=== PATIENT | female | born 1950 | race Caucasian/White ===

== ENCOUNTER 2017-02-09 11:26 | Outpatient (CLI) ==
[2015-10-11 14:58] VITALS: BMI 29.8
--- NOTE | 2017-02-09 12:02 | DI ---
EXAM: Four x-rays of the sinuses/paranasal sinuses. Comparison: CT of the brain performed on 06/19/2015. Reason for exam: Sinus drainage. FINDINGS: There is unremarkable appearing aeration of the frontal and bilateral maxillary sinuses. There are no discrete radiopaque densities or air-fluid levels seen within the sinuses. Impression: No acute findings are seen within the sinuses and paranasal sinuses. If clinical suspic ion is high, a CT scan may be performed.
== END 2017-02-09 11:27 | disposition home or self-care (01) ==
LOC: RAD 11:26
PROVIDERS: ATTEND Otolaryngology
DX: J31.0 Chronic rhinitis (principal)

== ENCOUNTER 2017-07-25 15:43 | Emergency (ER) ==
[2017-07-25 16:00] VITALS: TEMP 99.9; BMI 32.9
[2017-07-25] MEDS ORDERED: URO-JET MUCOUSMEMB STA (16:10)
[2017-07-25 16:43] LABS: BASOPHILS % (AUTO) 0.4 % (0.0-3.0); EOSINOPHILS # (AUTO) 0.1 K/ul (0.0-0.7); EOSINOPHILS % (AUTO) 1.1 % (0.0-7.0); HEMATOCRIT 40.3 % (37.0-47.0); HEMOGLOBIN 13.6 g/dl (12.0-16.0); IMMATURE GRANULOCYTE % (AUTO) 0.3 % (0.0-5.0); LYMPHOCYTES # (AUTO) 3.3 K/uL (0.60-3.4); LYMPHOCYTES % (AUTO) 31.4 (10.0-50.0); MEAN CORPUSCULAR HEMOGLOBIN 29.4 pg (27.0-31.0); MEAN CORPUSCULAR HGB CONC 33.7 (31.8-35.4); MEAN CORPUSCULAR VOLUME 87.2 fl (81.0-99.0); MONOCYTES # (AUTO) 0.8 K/uL (0.4-2.0); MONOCYTES % (AUTO) 7.5 (0-10); NEUTROPHILS # (AUTO) 6.2 K/ul (2.0-6.9); NEUTROPHILS % (AUTO) 59.3; PLATELET COUNT 230 10^3/uL (140-440); RED BLOOD COUNT 4.62 10^6/ul (4.20-5.40); WHITE BLOOD COUNT 10.41 K/ul (4.6-10.2)
[2017-07-25 16:43] LABS: BILIRUBIN,URINE Negative (NEGATIVE); KETONES,URINE Negative (NEGATIVE); LEUKOCYTE ESTERASE ,URINE Negative (NEGATIVE); NITRITE,URINE Negative (NEGATIVE); PROTEIN,URINE Negative (NEGATIVE); URINE, BLOOD Trace-intact (NEGATIVE)
--- NOTE | 2017-07-25 16:44 | CT ---
EXAM: CT of the abdomen pelvis without contrast History: Suprapubic abdominal pain. Technique: Multiplanar CT images through the abdomen pelvis were obtained without the administration of IV contrast Findings: Bilateral breast implants. Subsegmental atelectasis seen within the lower lungs. Atheros clerotic vascular calcifications. No discrete gallstones identified by CT. No focal liver or spleni c lesions. No peripancreatic inflammation. Adrenal glands are unremarkable. No renal stones and no hydronephrosis. 1.5 cm left renal cyst. No bowel obstruction. The appendix is normal. Scattered colonic stool. No bladder wall thickening. Adnexal structures appear appropriate for patient's age. No perirectal inflammation. No free air and no ascites. No acute osseous abnormalities. Severe de generative disc disease at L5-S1. Metallic wire device is seen traversing the left sacrum. Impression: 1. No acute intra-abdominal or pelvic process. 2. Small simple left renal cyst. 3. Severe degenerative disc disease at L5-S1
[2017-07-25 16:45] LABS: ADD URINE MICROSCOPIC YES
[2017-07-25 17:02] LABS: ALBUMIN 3.8 g/dL (3.4-5.0); ALBUMIN/GLOBULIN RATIO 0.97; ANION GAP 15.6; BILIRUBIN,TOTAL 0.8 mg/dL (0.00-1.20); BUN/CREATININE RATIO 16.66; CALCIUM 9.7 mg/dL (8.2-10.2); CREATININE 0.72 mg/dL (0.60-1.30); POTASSIUM 3.6 mmol/L (3.5-5.10); TOTAL PROTEIN 7.7 g/dL (5.8-8.1)
[2017-07-25] MEDS ORDERED: ATIVAN IM STA (17:44)
[2017-07-25 17:45] VITALS: BP 136/78
--- NOTE | 2017-07-25 17:50 | ED.PDOC ---
General ED Provider: Dr. ALEKSANDRA MATA Chief Complaint: Urinary Problem Stated Complaint: anxiety Time Seen by Physician: 16:00 (seen with entire nursing staff toya handy RN) Mode of Arrival: Walk-In Information Source: Family Exam Limitations: No limitations Primary Care Provider: ERAN BARTH Nursing and Triage Documentation Reviewed and Agree: Yes (PT HAS DEMENTIA AND IS VERY EMOTIONAL IN NO ACUTE PAIN) Psychological Complaint Exam - Psychiatric Complaint/Exam Patient Complains Of: Present: Depression, Other (ANXIET IN THE SETTING OF DEMENTIA GETTING WORSE DENIED PAIN VERY EMOTIONAL). Absent: Suicidal thoughts, Suicidal gestures Onset/Duration: 1 DAY Symptoms Are: Still present Timing: Intermittent Episodes Lasting: Hours Initial Severity: Moderate Current Severity: Moderate Character: Present: Depressed, Fearful, Anxious, Frustrated Aggravating: Reports: None Associated Signs And Symptoms: Denies: Hostile, Confused, Hallucinating, Paranoid behavior, Sleep disturbance, Appetite change Related History: Denies: Suicidal thoughts, Suicidal plan, Suicidal gestures, Homicidal thoughts, Homicidal plan, Homicidal gestures, Prior attempts, Recent stressors, Drug ingestion Completed Suicide Risk Factors: Age > 60 Patient Accompanied By: Family Patient In Custody Of Police: No Social Withdrawal Present: Yes Social Isolation Present: Yes Prior Suicide Attempt: No Injury From Prior Suicide Attempt: No Related Surgical History: Reports: None Patient Uncooperative For Exam: Yes Mood: Present: Anxious Insight: Present: Limited Memory: Intact Judgement: Impaired Patient Medically Stable For: Psych evaluation Differential Diagnoses: Anxiety, Other (DEMENTIA) Review of Systems - Review Of Systems Constitutional: Reports: No symptoms Eyes: Reports: No symptoms Ears, Nose, Mouth, Throat: Reports: No symptoms Respiratory: Reports: No symptoms Cardiac: Reports: No symptoms GI: Reports: No symptoms : Reports: No symptoms Musculoskeletal: Reports: No symptoms Skin: Reports: No symptoms Neurological: Reports: Emotional problems Endocrine: Reports: No symptoms Hematologic/Lymphatic: Reports: No symptoms All Other Systems: Reviewed and Negative Past Medical History - Past Medical History Previously Healthy: No Endocrine: Reports: Hypothyroid Cardiovascular: Reports: None Respiratory: Reports: None Hematological: Reports: None Gastrointestinal: Reports: None Genitourinary: Reports: None Neuro/Psych: Reports: Dementia Musculoskeletal: Reports: None Cancer: Reports: None Last Menstrual Period: menopause Other Pertinent Past Medical History: thyroid left wrist - Surgical History General Surgical History: Reports: Orthopedic (left wrist), Other (instem for over active bladder. thyroid ) - Family History Family History: Reports: Unknown - Social History Smoking Status: Never smoker Hx Substance Use: No Alcohol Screening: None Physical Exam - Physical Exam Appearance: Well-appearing, No pain distress, Well-nourished Eyes: BOBBY, EOMI, Conjunctiva clear ENT: Ears normal, Nose normal, Oropharynx normal Respiratory: Airway patent, Breath sounds clear, Breath sounds equal, Respirations nonlabored Cardiovascular: RRR, Pulses normal, No rub, No murmur GI/: Soft, Nontender, No masses, Bowel sounds normal, No Organomegaly Musculoskeletal: Normal strength, ROM intact, No edema, No calf tenderness Skin: Warm, Dry, Normal color Neurological: Sensation intact, Motor intact, Reflexes intact, Cranial nerves intact, Alert, Oriented Psychiatric: Affect appropriate, Mood appropriate Critical Care Note - Critical Care Note Total Time (mins): 0 Course - Course Hematology/Chemistry: 07/25/17 16:41 07/25/17 16:41 Orders, Labs, Meds: Lab Review 07/25/17 07/25/17 07/25/17 16:20 16:41 16:41 WBC 10.41 H RBC 4.62 Hgb 13.6 Hct 40.3 MCV 87.2 MCH 29.4 MCHC 33.7 RDW Coeff of [place] 13.2 Plt Count 230 Immature Gran % (Auto) 0.3 Neut % (Auto) 59.3 Lymph % (Auto) 31.4 [place] % (Auto) 7.5 Eos % (Auto) 1.1 Baso % (Auto) 0.4 Immature Gran # (Auto) 0.0 Neut # 6.2 Lymph # 3.3 [place] # 0.8 Eos # 0.1 Baso # 0.0 Sodium 142 Potassium 3.6 Chloride 109 H Carbon Dioxide 21 L Anion Gap 15.6 BUN 12 Creatinine 0.72 Estimated GFR (MDRD) 82.00 BUN/Creatinine Ratio 16.66 Glucose 84 Calcium 9.7 Total Bilirubin 0.80 AST 38 H ALT 71 Alkaline Phosphatase 184 H Total Protein 7.7 Albumin 3.8 Globulin 3.9 Albumin/Globulin Ratio 0.97 Urine Color Yellow Urine Clarity Clear Urine pH 7.0 Ur Specific [place] 1.010 Urine Protein Negative Urine Glucose (UA) Negative Urine Ketones Negative Urine Blood Trace-intact Urine Nitrite Negative Urine Bilirubin Negative Urine Urobilinogen 0.2 Ur Leukocyte Esterase Negative Urine Microscopic RBC 0-2 Urine Microscopic WBC 0-2 Ur Squamous Epith Cells 0-2 Orders Category Date Time Status ABG DRAW REQUEST Stat CARDIO 07/25/17 17:46 Ordered Bladder [ED BLADDER SCAN] .ONCE EMERGENCY 07/25/17 16:06 Active ABG Stat LAB 07/25/17 17:46 Ordered CBC W/ AUTO DIFF Stat LAB 07/25/17 16:41 Completed COMPREHENSIVE METABOLIC PANEL Stat LAB 07/25/17 16:41 Completed URINALYSIS C & S IF INDICATED Stat LAB 07/25/17 16:20 Completed Lorazepam Inj [Ativan] MEDS 07/25/17 17:44 Stat 1 mg IM ONCE STA CHEST, 2 VIEWS PA & LAT Stat RADS 07/25/17 17:[address] ABDOMEN/PELVIS WO CONTRAST Stat RADS 07/25/17 16:06 Completed Medications Discontinued Medications Generic Name Dose Route Start Last Admin Trade Name Freq PRN Reason Stop Dose Admin Lorazepam 1 mg 07/25/17 17:44 Ativan IM 07/25/17 17:45 ONCE STA Vital Signs: Temp Pulse Resp BP Pulse Ox 07/25/17 17:44 136/78 07/25/17 15:44 99.9 F H 95 H 20 0/0 L 95 Departure - Departure Time of Disposition: 19:00 (DEMENTIA DISCUSSED WITH FAMILY A SHORT COURSE OF [facility]NA BE USED ) Disposition: HOME SELF-CARE Discharge Problem: Anxiety, Dementia Instructions: Dementia (ED) Condition: Good Pt referred to PMD for follow-up: Yes Additional Instructions: Please call your Family Physician as soon as possible to schedule a follow-up appointment. Allergies/Adverse Reactions: Allergies No Known Allergies Allergy (Verified 07/25/17 15:54) Home Medications: Ambulatory Orders Memantine HCl [Namenda] 10 mg PO BID 05/28/15 Levetiracetam [Keppra] 500 mg PO BID 10/11/15 Diazepam 5 mg PO DAILY PRN 02/06/17 Diazepam 1 each RC PRN PRN #1 kt 02/07/17 Disposition Discussed With: Patient, Family Discharge Problem: Dementia Qualifiers: Dementia type: Alzheimer's disease
--- NOTE | 2017-07-25 18:58 | DI ---
EXAM: Two-view chest. HISTORY: Cough. COMPARISON: 10/11/2015 FINDINGS: PA and lateral views of the chest. The lung volumes are normal. There is no lobar cons olidation or effusion. The heart size and pulmonary vasculature are within normal limits. There are no suspicious pulmonary nodules. The pulmonary interstitium is normal. The aorta is tortuous and calcified. The osseous structures show mild degenerative changes consistent with age. IMPRESSION: No acute pulmonary disease.
== END 2017-07-25 19:13 | disposition home or self-care (01) ==
LOC: ED 15:43
DX: F41.9 Anxiety disorder, unspecified (principal); G30.9 Alzheimer's disease, unspecified; F02.80 Dementia in other diseases classified elsewhere, unspecified severity, without behavioral disturbance, psychotic disturbance, mood disturbance, and anxiety
CPT/HCPCS: 36415; 80053; 81001; 85025; 96372; 99283